=== PATIENT | male | born 1965 | race Caucasian/White ===

== ENCOUNTER 2023-10-12 09:51 | Day surgery (SDC) | payer BC, OTHER ==
[2023-10-01 14:19] VITALS: BMI 24.3
[2023-10-12 10:14] VITALS: RESP 16
[2023-10-12 11:34] VITALS: PULSE 71; TEMP 96.9
[2023-10-12 11:44] VITALS: BP 122/68
== END 2023-10-12 12:05 | disposition home or self-care (01) ==
LOC: FASU-ENDO 09:51
PROVIDERS: ATTEND Internal Medicine Gastroenterology
PROC: 0DJD8ZZ Inspection of Lower Intestinal Tract, Via Natural or Artificial Opening Endoscopic (ICD-10-PCS; principal; 2023-10-12 11:01)
DX: Z12.11 Encounter for screening for malignant neoplasm of colon (principal); K57.30 Diverticulosis of large intestine without perforation or abscess without bleeding; K64.1 Second degree hemorrhoids